=== PATIENT | male | born 1990 | race Caucasian/White ===

== ENCOUNTER 2017-07-13 00:33 | Emergency (ER) | payer MEDICAID, OTHER ==
[~2017-07-13] VITALS: Ht 180.3 cm; Wt 95.5 kg
[~2017-07-13 00:33] MED LIST: DICL-86 PO; Z.0.NO CURRENT MEDS
[2017-07-13 00:43] VITALS: BP 125/71; PULSE 78; RESP 18; TEMP 98; O2SAT 98
[2017-07-13] MEDS ORDERED: ZOFR4TAB PO (03:28)
== END 2017-07-13 02:41 | disposition left against medical advice (07) ==
LOC: NED 00:33
DX: R19.7 Diarrhea, unspecified (principal)
CPT/HCPCS: 99281

== ENCOUNTER 2017-07-13 02:46 | Emergency (ER) | payer MEDICAID, OTHER ==
[~2017-07-13] VITALS: Ht 180.3 cm; Wt 92.7 kg
[2017-07-13 02:55] VITALS: BP 130/61; PULSE 82; RESP 14; TEMP 97.6; O2SAT 97
[2017-07-13] MEDS ORDERED: ZOFR4TAB PO (03:28)
--- NOTE | 2017-07-13 03:28 | PD ---
HPI Chief Complaint: GI Complaint Time Seen by Provider: 03:15 Travel History International Travel<30 days: No Contact w/Intl Traveler<30days: No Traveled to known affect area: No History of Present Illness HPI Patient is a 27-year-old male presents emergency department for evaluation of nausea vomiting and diarrhea which started only a few hours prior to presentation. 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 He states his been watery emesis and watery diarrhea but nonbloody nonbilious emesis and nonbloody non-melanous stools. No abdominal pain. No weakness. States symptoms are mild, context and associated signs symptoms and duration as above per [facility] Past Medical History Medical History: Denies Significant Hx Diminished Hearing: No Tetanus Vaccination: Unknown Influenza Vaccination: No Past Surgical History Abdominal Surgery: Yes (ESOPHOGUS A BABY) Social History Alcohol Use: Yes (OCC) Tobacco Use: No Substance Use: No Allergies-Medications (Allergen,Severity, Reaction): Coded Allergies: acetaminophen (Unverified Allergy, Intermediate, 12/12/16) naproxen (Unverified Allergy, Intermediate, 12/12/16) propoxyphene (Unverified Allergy, Intermediate, 12/12/16) No Known Allergies (Unverified , 07/13/17) Reported Meds & Prescriptions Reported Meds & Active Scripts Active Zofran (Ondansetron HCl) 4 Mg Tab 4 Mg PO Q6HR PRN Review of Systems Except as stated in HPI: all other systems reviewed are Neg Physical Exam Narrative GENERAL: Well-developed well-nourished, no obvious distress, multiple tattoos. SKIN: Focused skin assessment warm/dry. HEAD: Atraumatic. Normocephalic. EYES: Pupils equal and round. No scleral icterus. No injection or drainage. ENT: No nasal bleeding or discharge. Mucous membranes pink and moist. NECK: Trachea midline. No JVD. CARDIOVASCULAR: Regular rate and rhythm. No murmur appreciated. RESPIRATORY: No accessory muscle use. Clear to auscultation. Breath sounds equal bilaterally. GASTROINTESTINAL: Abdomen soft, non-tender, nondistended. Hepatic and splenic margins not palpable. MUSCULOSKELETAL: No obvious deformities. No clubbing. No cyanosis. No edema. NEUROLOGICAL: Awake and alert. No obvious cranial nerve deficits. Motor grossly within normal limits. Normal speech. PSYCHIATRIC: Appropriate mood and affect; insight and judgment normal. Data Data Last Documented VS Vital Signs Date Time Temp Pulse Resp B/P (MAP) Pulse Ox O2 Delivery O2 Flow Rate FiO2 07/13/17 02:55 97.6 82 14 130/61 (84) 97 Orders Orders Ed Discharge Order (07/13/17 03:28) MDM Medical Decision Making Medical Screen Exam Complete: Yes Emergency Medical Condition: Yes Differential Diagnosis Gastritis, gastroenteritis, significant dehydration unlikely, viral illness. Narrative Course Patient room to the emergency department, appears well in no obvious distress. Prescription for Zofran, work excuse. He is stable for discharge discussed returning to criteria push p.o. fluids per Diagnosis Primary Impression: Nausea & vomiting Additional Impression: Diarrhea Departure Forms: Tests/Procedures, Work Release Enter return to work date: Jul 16, 2017 Med/Other Pt SpecificInfo: Prescription(s) given Scripts Ondansetron (Zofran) 4 Mg Tab 4 MG PO Q6HR Y for NAUSEA OR VOMITING, #20 TAB 0 Refills Prov: Renato Spears MD 07/13/17 Disposition: 01 DISCHARGE HOME Condition: Stable Renato Spears MD Jul 13, 2017 03:28
== END 2017-07-13 03:45 | disposition home or self-care (01) ==
LOC: PHED 02:46
DX: R11.2 Nausea with vomiting, unspecified (principal); R19.7 Diarrhea, unspecified
CPT/HCPCS: 99283